=== PATIENT | female | born 1975 | race Caucasian/White ===

== ENCOUNTER 2017-07-23 08:40 | Day surgery (SDC) | payer MEDICARE, MEDICAID ==
[~2017-07-23 08:40] MED LIST: PROPOFOL INJ 200 MG/20 ML VIAL IV ONE
[2017-07-23] MEDS ORDERED: PROPOFOL INJ 200 MG/20 ML VIAL IV ONE (09:55)
[2017-07-23 10:36] VITALS: BP 137/91
--- NOTE | 2017-07-23 12:40 | Operative Report ---
Operative Report DATE OF SURGERY: 07/23/17 Operative Report: The risks benefits and alternatives of the procedure explained to the patient in detail and informed consent is obtained.A GIF Olympus video scope was inserted into the patient's mouth and hypopharynx, the esophagus is identified intubated and insufflated, the scope was then advanced through the esophagus stomach and duodenum, retroflexion maneuver is done, the esophagus stomach and first and second portions of the duodenum examined PREOPERATIVE DIAGNOSIS: Dysphagia POSTOPERATIVE DIAGNOSIS: Gastritis, mild Schatzki's ring. Patient could have esophageal dysmotility as consideration for her symptoms OPERATION: EGD with dilation SURGEON: GEOVANI HARP ANESTHESIA: LMAC TISSUE REMOVED OR ALTERED: Gastritis status post biopsy rule out Helicobacter pylori COMPLICATIONS: None. ESTIMATED BLOOD LOSS: None. INTRAOPERATIVE FINDINGS: None. PROCEDURE: Patient tolerated the procedure well. No immediate postprocedure complications are noted. Patient discharged in good condition. Discharge date July 23, 2017. Discharge diet: Regular. Discharge activity: Regular. 2-3 week follow-up to discuss findings. Patient is instructed call the office or proceed to the emergency room should there be any further problems or questions. We will went pathology.
== END 2017-07-23 10:35 | disposition home or self-care (01) ==
LOC: END 08:40
PROVIDERS: ATTEND Internal Medicine Gastroenterology
PROC: 0DB68ZX Excision of Stomach, Via Natural or Artificial Opening Endoscopic, Diagnostic (ICD-10-PCS; principal; 2017-07-23 11:00)
DX: K29.50 Unspecified chronic gastritis without bleeding (principal); K22.2 Esophageal obstruction; D64.9 Anemia, unspecified; J45.20 Mild intermittent asthma, uncomplicated; G80.9 Cerebral palsy, unspecified; H54.8 Legal blindness, as defined in USA; Z79.51 Long term (current) use of inhaled steroids; Z79.899 Other long term (current) drug therapy
CPT/HCPCS: 43239; 43248; 88342 ×2; 88305 ×2; J2704; 731